=== PATIENT | female | born 1960 | race Two or more races ===

== ENCOUNTER 2017-12-31 10:13 | Emergency (ER) | payer MEDICARE, MEDICAID ==
[~2017-12-31] VITALS: Ht 160 cm; Wt 72.6 kg
[~2017-12-31 10:13] MED LIST: ALBU8.5H8 INH; ASEN10TA9 SL; BUDE10.2 INH; CARB200T8 PO; DULO30CA2 PO; DULO60CA45 PO; PRAV10TA40 PO; PROP10TA10 PO; SERT100T12 PO; TIOT18CA3 IH; TRAZ-182 PO; ZIPR80CA2 PO
--- NOTE | 2017-12-31 10:15 | NUR ---
PT C/O RT EAR PAIN AND DIZZINESS SINCE YESTERDAY. SEEN BY MD FOR EVAL. VSS. SAFETY AND COMFORT MEASURES PROVIDED. WILL MONITOR.
[2017-12-31] MEDS ORDERED: MECLIZINE HCL 25 MG TABLET ONE (10:28)
[2017-12-31] MEDS: MECLIZINE HCL 12.5 MG TABLET PO ONE (10:30)
[2017-12-31 10:33] LABS: BASOPHILS # (AUTO) 0.1 /CMM (0.0-0.2); BASOPHILS % (AUTO) 0.7 % (0.0-2.0); EOSINOPHILS % (AUTO) 3.4 % (0.0-6.0); HEMATOCRIT 40 % (33-45); LYMPHOCYTES # (AUTO) 2.1 /CMM (0.8-4.8); MEAN CORPUSCULAR HGB CONC 35 g/dl (31.0-36.0); MEAN CORPUSCULAR VOLUME 94 fL (82-100); MONOCYTES # (AUTO) 0.7 /CMM (0.1-1.30); MONOCYTES % (AUTO) 7.1 % (2.0-12.0); NEUTROPHILS # (AUTO) 6.7 /CMM (1.8-8.9); NEUTROPHILS % (AUTO) 67.8 % (43.0-81.0); PLATELET COUNT (AUTO) 260 /CMM (150-450); RDW COEFFICIENT OF VARIATION 12.8 (11.5-15.0); RED BLOOD CELL COUNT(AUTO) 4.32 MIL/uL (4.0-5.2); WHITE BLOOD COUNT (AUTO) 9.9 K/uL (4.3-11.0)
--- NOTE | 2017-12-31 10:33 | NUR ---
PT MEDICATED ORDERED.
[2017-12-31 10:40] LABS: CALCIUM, SERUM 9.3 mg/dL (8.5-10.1); CARBON DIOXIDE 27 mmol/L (21-32); CHLORIDE 102 mmol/L (98-107); CREATININE 0.9 mg/dL (0.6-1.3); GLUCOSE 133 mg/dL (74-106); POTASSIUM 4.1 mmol/L (3.5-5.1); SODIUM SERUM 136 mmol/L (136-145); UREA NITROGEN, BLOOD 20 mg/dL (7-18)
[2017-12-31 10:49] LABS: TROPONIN I < 0.017 ng/mL (0.00-0.056)
--- NOTE | 2017-12-31 11:23 | NUR ---
PT TAKEN TO CT.
[2017-12-31 12:00] VITALS: BP 126/77
--- NOTE | 2017-12-31 12:00 | NUR ---
Patient discharged to home in stable condition. Written and verbal after care instructions given. Patient verbalizes understanding of instruction.
== END 2017-12-31 12:01 | disposition home or self-care (01) ==
LOC: ER 10:16
DX: H83.01 Labyrinthitis, right ear (principal); F32.9 Major depressive disorder, single episode, unspecified; F41.9 Anxiety disorder, unspecified; H91.91 Unspecified hearing loss, right ear; Z87.891 Personal history of nicotine dependence
CPT/HCPCS: 36415; 70450-TC; 80048-TC; 84484-TC; 85025-TC; A4606; J8597; Z7610

== ENCOUNTER 2019-09-18 19:14 | Emergency (ER) | payer MEDICARE, OTHER ==
[~2019-09-18] VITALS: Ht 160 cm; Wt 72.6 kg
--- NOTE | 2019-09-18 19:36 | NUR ---
PT CAME TO ER BED 11 C/O PAIN ON RIGHT SIDE OF FACE. PT STATES THAT FOR 2 DAYS THAT SHE RIGHT SIDE NECK LYMPH NODE SWELLING AND HAD THIS PAIN ABOVE HER RIGHT EYEBROW FOR 4 DAYS. REDNESS ON THE RIGHT SIDE OF EYEBROW W/ LESION. AAOX4. NO SOB. VSS. CONNECTED TO MONITOR. AT BEDSIDE.
[2019-09-18] MEDS ORDERED: FLUORESCEIN SODIUM OPHTH 1 EA STRIP ONE (19:39)
[2019-09-18 19:48] VITALS: BP 126/76
[2019-09-18] MEDS ORDERED: TETRACAINE HCL 0.5% OPHTALMIC 15 ML BOTTLE OP ONE (20:00)
[2019-09-18] MEDS ORDERED: FLUORESCEIN SODIUM OPHTH 1 EA STRIP OP ONE (20:00)
[2019-09-22] MEDS ORDERED: VALA10002 PO (10:30)
== END 2019-09-18 19:56 | disposition home or self-care (01) ==
LOC: ER 19:24
DX: B02.9 Zoster without complications (principal); F20.9 Schizophrenia, unspecified; F32.9 Major depressive disorder, single episode, unspecified; F41.9 Anxiety disorder, unspecified; E78.5 Hyperlipidemia, unspecified; I10 Essential (primary) hypertension; Z79.899 Other long term (current) drug therapy; Z87.891 Personal history of nicotine dependence

== ENCOUNTER 2019-09-20 09:21 | Inpatient (IN) | payer MEDICARE, OTHER ==
[~2019-09-20] VITALS: Ht 167.6 cm; Wt 88.5 kg
[2019-09-20] MEDS ORDERED: MORPHINE SULFATE INJ 4 MG/ML DISP.SYRIN ONE (09:47)
[2019-09-20] MEDS ORDERED: ONDANSETRON HCL/PF 4 MG/2 ML VIAL ONE (09:47)
[2019-09-20 09:49] LABS: BASOPHILS # (AUTO) 0.1 /CMM (0.0-0.2); EOSINOPHILS % (AUTO) 5.8 % (0.0-6.0); HEMATOCRIT 42 % (33-45); HEMOGLOBIN 14.4 g/dL (11.5-14.8); LYMPHOCYTES # (AUTO) 1.5 /CMM (0.8-4.8); LYMPHOCYTES % (AUTO) 23.6 % (20.0-44.0); MEAN CORPUSCULAR HGB CONC 34 g/dl (31.0-36.0); MEAN CORPUSCULAR VOLUME 94 fL (82-100); MONOCYTES # (AUTO) 0.6 /CMM (0.1-1.30); MONOCYTES % (AUTO) 9.7 % (2.0-12.0); NEUTROPHILS # (AUTO) 3.8 /CMM (1.8-8.9); NEUTROPHILS % (AUTO) 59.9 % (43.0-81.0); PLATELET COUNT (AUTO) 210 /CMM (150-450); RED BLOOD CELL COUNT(AUTO) 4.51 MIL/uL (4.0-5.2); WHITE BLOOD COUNT (AUTO) 6.4 K/uL (4.3-11.0)
[2019-09-20 09:56] LABS: CALCIUM, SERUM 9.3 mg/dL (8.5-10.1); CREATININE 1.1 mg/dL (0.6-1.3)
[2019-09-20] MEDS ORDERED: ONDANSETRON HCL/PF 4 MG/2 ML VIAL IVP ONE (10:00)
[2019-09-20] MEDS ORDERED: D5W IV ONE (10:00)
[2019-09-20] MEDS ORDERED: MORPHINE SULFATE INJ 2 MG/ML DISP.SYRIN IV ONE (10:00)
[2019-09-20] MEDS ORDERED: ACYCLOVIR IV ONE (10:00)
[2019-09-20] MEDS ORDERED: IV NS 0.9% 1,000 ML BAG IV ONE (10:00)
--- NOTE | 2019-09-20 10:00 | NUR ---
patient came in to the er c/o facial pain, in no distress, on room air, breathing evenly and unlabored. kept comfortable, will continue to monitor accordingly. Will continue to monitor accordingly.
[2019-09-20 10:02] LABS: ALBUMIN 3.8 g/dL (3.4-5.0); BILIRUBIN,DIRECT 0.1 mg/dL (0.0-0.2); BILIRUBIN,TOTAL 0.3 mg/dL (0.2-1.0); TOTAL PROTEIN, SERUM 7.7 g/dL (6.4-8.2)
--- NOTE | 2019-09-20 13:00 | NUR ---
report given, transferred to 2nd floor
--- NOTE | 2019-09-20 13:20 | NUR ---
M/S CATALYST OPERATOR NOTED PT A/OX4, RESPONSIVE TO ALL STIMULI, THAI SPEAKING. RESPIRATION EVEN AND UNLABORED WITH NO ACUTE RESPIRATORY DISTRESS. ABDOMEN SOFT AND NON DISTENDED WITH ACTIVE BOWEL SOUNDS, CONTINENT BOWEL AND BLADDER. SKIN WARM TO TOUCH AND DRY, FACIAL REDNESS DUE TO SHINGLES THE ONLY SKIN IMPAIRMENT. PT WITH PAIN SCALE OF 8/10, REFUSED MORPHINE AND ZOFRAN IN ER. TOLERATING AT THIS TIME STATED. IV SITE AT RIGHT AC #18, PATENT IN FLUSHING, NO S/SX ON INFILTRATION. CALL LIGHT WITHIN REACHED. BED IN LOCKED POSITION, SIDE RAILS X2 UP FOR SAFETY. ON CONTACT ISOLATION DUE TO SHINGLES. WILL CONTINUE TO EVALUATE CARE.
[2019-09-20] MEDS ORDERED: ONDANSETRON HCL/PF 4 MG/2 ML VIAL IVP PRN (15:30)
[2019-09-20] MEDS ORDERED: ACETAMINOPHEN 325 MG TABLET PO PRN (15:30)
[2019-09-20] MEDS ORDERED: ZOLPIDEM TARTRATE 5 MG TABLET PO PRN (15:30)
[2019-09-20] MEDS: IV NS 0.9% 1,000 ML IV PRN (15:43)
[2019-09-20 16:00] VITALS: BP 127/72
[2019-09-20] MEDS: oxyCODONE IR immediate release 5 MG PO PRN (16:02)
[2019-09-20] MEDS: ENOXAPARIN SODIUM 40 MG/0.4 ML DISP.SYRIN SQ SCH (16:03)
[2019-09-20] MEDS: VALACYCLOVIR HCL 500 MG TABLET PO SCH ×2 (16:21→21:01)
[2019-09-20] MEDS: LIDOCAINE 5% OINT 35.44 GM TUBE TP SCH ×2 (16:22→23:20)
--- NOTE | 2019-09-20 18:48 | NUR ---
M/S RN NOTES PT A/O X4, RESPONSIVE TO ALL STIMULI. NO SOB NOTED. FACIAL PAIN SCALE OF 3-4/10, TOLERATED WELL. ON CONTACT ISOLATION. KEPT SKIN CLEAN AND DRY. ABD SOFT AND NON DISTENDED WITH ACTIVE BOWEL SOUNDS, NO BM TODAY. RIGHT AC #18 RUNNING NS AT 75 ML/HR. CALL LIGHT WITHIN REACH, BED REMAINED IN LOW LOCKED POSITION, SIDE RAILS X2 UP FOR BED MOBILITY. ALL CONCERNS ATTENDED. ENDORSED PT CARE TO NEXT SHIFT.
[2019-09-20] MEDS: IPRATROPIUM NEB FS 0.5 MG/2.5 ML AMPUL.NEB NEB SCH (19:17)
[2019-09-20] MEDS ORDERED: ALBUTEROL FS 2.5 MG/0.5 ML VIAL.NEB NEB PRN (19:30)
[2019-09-20] MEDS ORDERED: FLUTICASONE/SALMETEROL DISKUS IH SCH (21:00)
[2019-09-20] MEDS: DULOXETINE HCL 30 MG CAPSULE.DR PO SCH (21:57)
[2019-09-20] MEDS: ATORVASTATIN 10 MG TABLET PO SCH (21:58)
[2019-09-20] MEDS: PROPRANOLOL HCL 10 MG TABLET PO SCH (21:58)
[2019-09-20] MEDS: CARBAMAZEPINE 200 MG TABLET PO SCH (21:58)
[2019-09-20] MEDS: TRAZODONE 50 MG TABLET PO SCH (21:58)
[2019-09-21] MEDS: IPRATROPIUM NEB FS 0.5 MG/2.5 ML AMPUL.NEB NEB SCH ×4 (01:32→19:54)
[2019-09-21] MEDS: VALACYCLOVIR HCL 500 MG TABLET PO SCH ×3 (04:40→22:48)
[2019-09-21] MEDS: IV NS 0.9% 1,000 ML IV PRN ×2 (04:41→20:42)
--- NOTE | 2019-09-21 04:53 | NUR ---
ENDING NOTES: REMAINS IN CONTACT ISOLATION D/T SHINGLES. SHINGLE NOTED ON FOREHEAD NEAR RIGHT EYE BROW. DENIES PAIN WHEN SHE IS QUESTIONED. AMBULATES TO THE BATHROOM STEADY ON HER LEGS. SHE WILL SMILE AND IS COOPERATIVE. SLEPT W/O A PROBLEM.
--- NOTE | 2019-09-21 07:23 | NUR ---
M/S RN OPENING NOTES RECEIVED PATIENT ON BED, A/OX 3, RESPONSIVE TO ALL STIMULI, IMPAIRED HEARING. RESPIRATION EVEN AND NON LABORED WITH NO ACUTE RESPIRATORY DISTRESS. ABDOMEN SOFT AND NON DISTENDED WITH ACTIVE BOWEL SOUNDS. DENIES PAIN AND DISCOMFORT. SKIN WARM TO TOUCH AND DRY. RIGHT EYE WITH SLIGHT SWELLING, PAIN WHEN TOUCHED. IV SITE ACCIDENTALLY PULLED OUT BY LAB. WILL RE-INSERT. CALL LIGHT WITHIN REACH. ALL CONCERNS ATTENDED, BED IN LOW, LOCKED POSITION. WILL CONTINUE TO EVALUATE CARE.
[2019-09-21] MEDS: LIDOCAINE 5% OINT 35.44 GM TUBE TP SCH ×3 (07:51→22:48)
[2019-09-21 08:00] VITALS: BP 141/97
[2019-09-21] MEDS: ZIPRASIDONE 20 MG CAPSULE PO SCH (08:04)
[2019-09-21] MEDS: DULOXETINE HCL 30 MG CAPSULE.DR PO SCH ×2 (08:04→22:51)
[2019-09-21] MEDS: FLUTICASONE/VILANTEROL 1 EACH BLST.W.DEV IH SCH (08:04)
[2019-09-21 08:19] LABS: BASOPHILS # (AUTO) 0.1 /CMM (0.0-0.2); BASOPHILS % (AUTO) 0.7 % (0.0-2.0); HEMATOCRIT 38 % (33-45); LYMPHOCYTES # (AUTO) 2.8 /CMM (0.8-4.8); LYMPHOCYTES % (AUTO) 37.7 % (20.0-44.0); MEAN CORPUSCULAR HGB CONC 34 g/dl (31.0-36.0); MEAN CORPUSCULAR VOLUME 93 fL (82-100); MONOCYTES # (AUTO) 1.1 /CMM (0.1-1.30); NEUTROPHILS # (AUTO) 2.9 /CMM (1.8-8.9); NEUTROPHILS % (AUTO) 39.6 % (43.0-81.0); PLATELET COUNT (AUTO) 186 /CMM (150-450); RED BLOOD CELL COUNT(AUTO) 4.12 MIL/uL (4.0-5.2); WHITE BLOOD COUNT (AUTO) 7.4 K/uL (4.3-11.0)
[2019-09-21 08:48] LABS: ALBUMIN 3.1 g/dL (3.4-5.0); BILIRUBIN,TOTAL 0.3 mg/dL (0.2-1.0); CALCIUM, SERUM 7.9 mg/dL (8.5-10.1); CREATININE 1.1 mg/dL (0.6-1.3); MAGNESIUM 1.7 mg/dL (1.8-2.4); PHOSPHORUS 3.6 mg/dL (2.5-4.9); TOTAL PROTEIN, SERUM 6.7 g/dL (6.4-8.2)
[2019-09-21] MEDS ORDERED: TIOTROPIUM BROMIDE 6 CAP/BOX CAP.W.DEV IH SCH (09:00)
[2019-09-21] MEDS: oxyCODONE IR immediate release 5 MG PO PRN (09:59)
[2019-09-21 10:16] LABS: EOSINOPHILS % (MANUAL) 8 % (0-4); LYMPHOCYTES % (MANUAL) 32 % (16-48); MONOCYTES % (MANUAL) 13 % (0-11.0); NEUTROPHILS % (MANUAL) 47 (42-76); THYROID STIMULATING HORMONE 2.619 uIU/mL (0.358-3.74)
[2019-09-21] MEDS: Magnesium 1GM/D5W 100ML PREMIX 100 ML IV SCH ×2 (11:48→13:00)
--- NOTE | 2019-09-21 11:50 | NUR ---
M/S RN NOTES PT COMFORTABLE AT THIS TIME. HELPED IN PERSONAL HYGIENE. WILL CONTINUE TO EVALUATE CARE
--- NOTE | 2019-09-21 15:25 | NUR ---
M/S RN NOTES PT ROUNDS, PT SLEEPING, EASILY AROUSABLE. NO PAIN NOTED. CONTINUE TO MONITOR
[2019-09-21 16:00] VITALS: BP 105/57
--- NOTE | 2019-09-21 19:07 | NUR ---
M/S RN CLOSING NOTES PT A/OX 3, RESPONSIVE TO ALL STIMULI, ASSESSED NO ACUTE RESPIRATORY DISTRESS. ABDOMEN SOFT AND NON DISTENDED WITH ACTIVE BOWEL SOUNDS. PT DENIES PAIN AND DISCOMFORT. SKIN WARM TO TOUCH AND DRY. RIGHT EYE STILL SWOLLEN, NO IMPAIRMENT WITH VISION. IV AT LEFT AC, PATENT IN FLUSHING, SITE WITH NO S/SX OF INFILTRATION. CALL LIGHT WITHIN REACH. ALL CONCERNS ATTENDED. ENDORSED PT CARE TO NEXT SHIFT.
[2019-09-21 20:38] VITALS: BP 124/69
[2019-09-21] MEDS: TRAZODONE 50 MG TABLET PO SCH (22:50)
[2019-09-21] MEDS: PROPRANOLOL HCL 10 MG TABLET PO SCH (22:51)
[2019-09-21] MEDS: ATORVASTATIN 10 MG TABLET PO SCH (22:51)
[2019-09-21] MEDS: CARBAMAZEPINE 200 MG TABLET PO SCH (22:52)
[2019-09-21] MEDS: ENOXAPARIN SODIUM 40 MG/0.4 ML DISP.SYRIN SQ SCH (22:54)
[2019-09-22] MEDS: IPRATROPIUM NEB FS 0.5 MG/2.5 ML AMPUL.NEB NEB SCH ×3 (01:41→12:39)
[2019-09-22] MEDS: VALACYCLOVIR HCL 500 MG TABLET PO SCH ×2 (06:30→13:08)
[2019-09-22] MEDS: LIDOCAINE 5% OINT 35.44 GM TUBE TP SCH (06:30)
[2019-09-22 06:59] LABS: CALCIUM, SERUM 8.3 mg/dL (8.5-10.1); MAGNESIUM 2.3 mg/dL (1.8-2.4)
--- NOTE | 2019-09-22 07:25 | NUR ---
MS RN OPENING NOTES RECEIVED PATIENT AWAKE IN BED IN NO ACUTE SIGNS OF DISTRESS. A/O X 4. ABLE TO MAKE NEEDS KNOWN, DENIES PAIN OR DISCOMFORTS AT THIS TIME. PT ON CONTACT PRECAUTIONS FOR SHINGLES. ON ROOM AIR, BREATHING EVEN AND UNLABORED. IV ACCESS ON LAC G#22 INTACT AND PATENT, IVF OF NS @ 75ML/HR INFUSING, NO S/S OF INFILTRATIONS NOTED. SAFETY MEASURES IN PLACE: BED IN LOWEST LOCKED POSITION WITH SR UP X2. CALL LIGHT WITHIN REACH. WILL CONTINUE TO MONITOR.
[2019-09-22] MEDS: FLUTICASONE/VILANTEROL 1 EACH BLST.W.DEV IH SCH (08:10)
[2019-09-22] MEDS: DULOXETINE HCL 30 MG CAPSULE.DR PO SCH (08:10)
[2019-09-22] MEDS: ZIPRASIDONE 20 MG CAPSULE PO SCH (08:10)
[2019-09-22 08:36] VITALS: BP 120/56
[2019-09-22] MEDS ORDERED: VALA10002 PO (10:30)
--- NOTE | 2019-09-22 13:19 | NUR ---
RN DISCHARGED NOTES PT DISCHARGED HOME IN STABLE CONDITION. SHE IS A/O X4 AND ABLE TO MAKE NEEDS KNOWN. V/S TAKEN, STABLE AND RECORDED. PHOTO OF SKIN ON FACE/FOREHEAD TAKEN AND FILED ON CHART. ALL BELONGINGS ACCOUNTED FOR AND SIGNED FORM. IV ACCESS ON LAC REMOVED WITH NO ACTIVE BLEEDING NOTED, DRY DRESSING APPLIED AT SITE. NAME ARMBAND REMOVED. HEALTH TEACHINGS/DISCHARGE INSTRUCTIONS GIVEN AND VERBALIZED UNDERSTANDING. PT LEFT UNIT AT 1315 AMBULATORY ACCOMPANIED BY FRIEND NAMED RODRIGO. AWARE OF DISCHARGE
== END 2019-09-22 13:15 | disposition home or self-care (01) | DRG 866 ==
LOC: ER 09:24 → MEDSG2 12:45
PROVIDERS: ADMIT Nurse Practitioner Acute Care; ATTEND Nurse Practitioner Acute Care
DX: B02.8 Zoster with other complications (principal); I10 Essential (primary) hypertension; F32.9 Major depressive disorder, single episode, unspecified; F41.9 Anxiety disorder, unspecified; J44.9 Chronic obstructive pulmonary disease, unspecified; E78.5 Hyperlipidemia, unspecified; F20.9 Schizophrenia, unspecified; Z87.891 Personal history of nicotine dependence; Z79.51 Long term (current) use of inhaled steroids; Z79.899 Other long term (current) drug therapy
CPT/HCPCS: 36415; 80048-TC; 80053-TC; 80061-TC; 80076-TC; 83540-TC; 83735-TC; 84100-TC; 84443-TC; 85025-TC; 87081-TC; G0378; J0133; J1650; J2270; J2405; J3475; J7030; J7060

== ENCOUNTER 2020-10-27 07:31 | Emergency (ER) | payer MEDICARE, OTHER ==
[~2020-10-27] VITALS: Ht 160 cm; Wt 77.1 kg
[~2020-10-27 07:31] MED LIST changes: +SERT-439 PO; -SERT100T12 PO; +VALA10002 PO
--- NOTE | 2020-10-27 07:49 | NUR ---
pt ambulatory to er bed 06 c/o worsening sob x 2 weeks. pt denies chest pain, states got 1st dose of galindo vaccine last sunday. admits to smoking daily. denies fever. awaiting md carrasco.
--- NOTE | 2020-10-27 07:57 | NUR ---
dr almanza at bedside for eval.
[2020-10-27] MEDS ORDERED: ALBUTEROL FS 2.5 MG/0.5 ML VIAL.NEB NEB ONE (08:00)
[2020-10-27] MEDS ORDERED: ALBUTEROL FS 2.5 MG/3 ML VIAL.NEB ONE (08:12)
[2020-10-27 08:21] LABS: BASOPHILS # (AUTO) 0.1 /CMM (0.0-0.2); BASOPHILS % (AUTO) 0.9 % (0.0-2.0); HEMATOCRIT 44 % (33-45); HEMOGLOBIN 14.7 g/dL (11.5-14.8); LYMPHOCYTES # (AUTO) 2.7 /CMM (0.8-4.8); LYMPHOCYTES % (AUTO) 25.3 % (20.0-44.0); MEAN CORPUSCULAR HGB CONC 34 g/dl (31.0-36.0); MEAN CORPUSCULAR VOLUME 93 fL (82-100); MONOCYTES # (AUTO) 0.8 /CMM (0.1-1.30); NEUTROPHILS # (AUTO) 6.9 /CMM (1.8-8.9); NEUTROPHILS % (AUTO) 63.8 % (43.0-81.0); PLATELET COUNT (AUTO) 252 /CMM (150-450); RED BLOOD CELL COUNT(AUTO) 4.67 MIL/uL (4.0-5.2); WHITE BLOOD COUNT (AUTO) 10.8 K/uL (4.3-11.0)
[2020-10-27 08:34] LABS: CALCIUM, SERUM 9.4 mg/dL (8.5-10.1); CARBON DIOXIDE 26 mmol/L (21-32); CHLORIDE 104 mmol/L (98-107); GLUCOSE 164 mg/dL (74-106); SODIUM SERUM 141 mmol/L (136-145); UREA NITROGEN, BLOOD 20 mg/dL (7-18)
[2020-10-27 08:48] LABS: ALANINE AMINOTRANSFERASE 47 U/L (12-78); ALBUMIN 3.6 g/dL (3.4-5.0); ALKALINE PHOSPHATASE 130 U/L (46-116); ASPARTATE AMINOTRANSFERASE 19 U/L (15-37); B-TYPE NATRIURETIC PEPTIDE 72 PG/ML (0-125); BILIRUBIN,DIRECT 0.1 mg/dL (0.0-0.2); BILIRUBIN,TOTAL 0.3 mg/dL (0.2-1.0); TOTAL PROTEIN, SERUM 7.7 g/dL (6.4-8.2)
[2020-10-27] MEDS ORDERED: AZIT500T PO (09:22)
[2020-10-27] MEDS ORDERED: DEXA4TAB PO (09:22)
[2020-10-27 09:57] VITALS: BP 159/73
--- NOTE | 2020-10-27 09:57 | NUR ---
Patient discharged to home in stable condition. Written and verbal after care instructions given. Patient verbalizes understanding of instruction.
== END 2020-10-27 09:58 | disposition home or self-care (01) ==
LOC: ER 07:35
DX: J84.9 Interstitial pulmonary disease, unspecified (principal); I10 Essential (primary) hypertension; E11.9 Type 2 diabetes mellitus without complications; F32.9 Major depressive disorder, single episode, unspecified; F41.9 Anxiety disorder, unspecified; F20.9 Schizophrenia, unspecified; Z87.891 Personal history of nicotine dependence; Z79.899 Other long term (current) drug therapy
CPT/HCPCS: 36415; 71045-TC; 80048-TC; 80076-TC; 83880; 84484-TC; 85025-TC

== ENCOUNTER 2021-08-25 11:23 | Outpatient (CLI) | payer MEDICARE, OTHER ==
[~2021-08-25 11:23] MED LIST changes: +AZIT500T PO; +DEXA4TAB PO; -SERT-439 PO; +SERT100T12 PO
== END 2021-08-25 23:59 | disposition home or self-care (01) ==
LOC: LAB 11:23
PROVIDERS: ATTEND Specialist
DX: Z01.812 Encounter for preprocedural laboratory examination (principal); Z20.822 Contact with and (suspected) exposure to COVID-19
CPT/HCPCS: C9803; U0003

== ENCOUNTER 2021-08-31 05:03 | Day surgery (SDC) | payer MEDICARE, OTHER ==
[~2021-08-31] VITALS: Ht 160 cm; Wt 74.8 kg
--- NOTE | 2021-08-31 05:20 | NUR ---
DAY SURGERY CMO & PRESIDENT NOTE PATIENT CAME IN AT THIS TIME, AMBULATORY, A/OX4. NO S/S OF APPARENT DISTRESS ON ROOM AIR. PAIN IN THE R. KNEE-- GOING IN FOR R. KNEE ARTHROSCOPY WITH PARTIAL MEDIAL MENISCECTOMY WITH DOCTOR NOE. PATIENT DENIES ALLERGIES. DENIES SMOKING WHEN I ASKED, BUT WHEN ASKED BY ANESTHESIOLOGIST PATIENT SAID SHE QUIT 3 MONTHS AGO. DENIES ANY SUBSTANCE ABUSE. WISHES TO BE FULL CODE. HAS BEEN NPO SINCE MIDNIGHT. WENT OVER BELONGINGS WITH PATIENT. BELONGINGS SIGNED. PATIENT UPPER AND LOWER DENTURES TAKEN OFF AT BED SIDE. WT: 165 LBS, HT 5'3". ALL ORDERS IN THE CHART. ID BAND ON PATIENT. PATIENT UP TO DATE WITH HER VACCINATIONS-- COVID AND PNU BUT NO BOOSTER YET. WILL LET PT. SIGN CONSENT FORMS FOR PROCEDURE.
--- NOTE | 2021-08-31 05:55 | NUR ---
MS RN NOTE CONSENTS SIGNED AT THIS TIME. ANESTHESIOLOGIST WAS IN THE ROOM AND SPOKE WITH PATIENT ABOUT PROCEDURE. R. HAND GAUGE 20 NO FLUIDS RUNNING AT THIS TIME. V/S FOLLOWS: 125/71, HR- 63, SATURATION 97%, T- 98.7, RR-18. OR CALLED AND SAID THEY WILL PICK PATIENT UP AT 0630.
[2021-08-31] MEDS ORDERED: ANESTHESIA TRAY IN PYXIS 1 EA TRAY MC ONE (06:16)
[2021-08-31] MEDS ORDERED: methylPREDNISolone ACETATE 80 MG/ML VIAL ONE ×2 (06:16→06:52)
[2021-08-31] MEDS ORDERED: BUPIVACAINE 0.25% 75 MG/30 ML VIAL ONE ×2 (06:16→06:52)
[2021-08-31] MEDS ORDERED: FAMOTIDINE/PF INJ 20 MG/2 ML VIAL IV ONE (06:31)
[2021-08-31] MEDS ORDERED: FENTANYL PF 250MCG/5ML AMPUL ONE (06:31)
[2021-08-31] MEDS ORDERED: MIDAZOLAM HCL 2 MG/2ML VIAL ONE (06:31)
--- NOTE | 2021-08-31 06:50 | NUR ---
MS RN NOTE OR BROUGHT PATIENT DOWN AT THIS TIME. WILL ENDORSE TO MORNING SHIFT RN FOR CONTINUITY OF CARE.
[2021-08-31] MEDS ORDERED: LIDOCAINE HCL/MPF 1% 30 ML VIAL IJ ONE (06:51)
[2021-08-31] MEDS ORDERED: BUPIVACAINE MPF W/EPI 0.25% 30 ML VIAL ONE (06:51)
--- NOTE | 2021-08-31 07:15 | NUR ---
MS RN NOTE PATIENT ENDORSED BY OUTGOING RN. PATIENT CURRENTLY AT THE OR FOR SCHEDULED PROCEDURE. WILL WAIT FOR ENDORSEMENT FROM OR/RR.
[2021-08-31 09:00] VITALS: BP 127/71
[2021-08-31] MEDS ORDERED: ERGO500040 PO (09:05)
[2021-08-31] MEDS ORDERED: POLY17PO4 PO (09:05)
[2021-08-31] MEDS ORDERED: IBUP-1955 PO (09:05)
[2021-08-31] MEDS ORDERED: VALS1TAB4 PO (09:05)
[2021-08-31] MEDS ORDERED: ATOR40TA PO (09:05)
[2021-08-31] MEDS ORDERED: HYDR50TA61 PO (09:05)
[2021-08-31] MEDS ORDERED: OXYB-58 PO (09:05)
[2021-08-31] MEDS ORDERED: CLON0.5T4 PO (09:05)
[2021-08-31] MEDS ORDERED: DICL100G34 TP (09:05)
[2021-08-31] MEDS ORDERED: HYDR-3980 PO (09:05)
[2021-08-31] MEDS ORDERED: VALB40CA2 PO (09:05)
--- NOTE | 2021-08-31 09:50 | NUR ---
MS RN NOTE RECEIVED PATIENT FROM OR ALERT AND ORIENTED WITH NO SIGNS AND SYMPTOMS OF DISTRESS. PATIENT ON ROOM AIR WITH EQUAL AND UNLABORED BREATHING. WITH IV ACCESS ON THE RIGHT HAND G 20 PATENT AND INTACT. WITH ELESTIC BANDAGE ON THE RIGHT KNEE, DRY AND INTACT. PATIENT DOES NOT COMPLAIN OF PAIN OR DISCOMFORT. IN STABLE CONDITION. WITH INSTRUCTION FOR DISCHARGE ONCE PATIENT IS COMFORTABLE. PER PATIENT. SHE WILL GO HOME AROUND 1100H AND THAT HER FRIEND WILL PICK HER UP. CALL LIGHT WITHIN REACH AT ALL TIMES. SAFETY ENSURED WITH BED AT LOWEST LOCKED POSITION, SIDE RAILS RAISED. IN STABLE CONDITION. WILL CONTINUE TO MONITOR PATIENT.
--- NOTE | 2021-08-31 11:10 | NUR ---
MS RN NOTE PATIENT DISCHARGED ORDERED. IN STABLE CONDITION. IV ACCESS REMOVED AND COVERED WITH DRY DRESSING. PATIENT ACCOMPANIED BY NURSE TO LOBBY VIA WHEELCHAIR AND PICKED UP BY FRIEND. IN STABLE CONDITION. ENDORSED ACCORDINGLY.
== END 2021-08-31 16:00 | disposition home or self-care (01) ==
LOC: DS 05:03 → MED 05:04 → UNDOADMIN 05:04 → MED 05:34 → UNDODISIN 11:00 → DS 16:00
PROVIDERS: ATTEND Specialist
DX: S83.231A Complex tear of medial meniscus, current injury, right knee, initial encounter (principal); S83.281A Other tear of lateral meniscus, current injury, right knee, initial encounter; I10 Essential (primary) hypertension; J44.9 Chronic obstructive pulmonary disease, unspecified; M22.40 Chondromalacia patellae, unspecified knee; E11.9 Type 2 diabetes mellitus without complications; E78.5 Hyperlipidemia, unspecified; X58.XXXA Exposure to other specified factors, initial encounter; Y93.89 Activity, other specified; Y92.89 Other specified places as the place of occurrence of the external cause; Y99.8 Other external cause status; Z98.890 Other specified postprocedural states; Z79.899 Other long term (current) drug therapy
CPT/HCPCS: 29880; 82962; 87081; A4217; A6253; J0690; J1040; J1885; J2250; J2405; J2704; J2765; J3010; J3490 ×4; J7030; G0378

== ENCOUNTER 2021-10-04 10:34 | Outpatient (CLI) | payer MEDICARE, OTHER ==
[~2021-10-04 10:34] MED LIST changes: -ALBU8.5H8 INH; -ASEN10TA9 SL; +ATOR40TA PO; -AZIT500T PO; -BUDE10.2 INH; -CARB200T8 PO; +CLON0.5T4 PO; -DEXA4TAB PO; +DICL100G34 TP; -DULO30CA2 PO; +ERGO500040 PO; +HYDR-3980 PO; +HYDR50TA61 PO; +IBUP-1955 PO; +OXYB-58 PO; +POLY17PO4 PO; -PRAV10TA40 PO; -PROP10TA10 PO; -TIOT18CA3 IH; -TRAZ-182 PO; -VALA10002 PO; +VALB40CA2 PO; +VALS1TAB4 PO; -ZIPR80CA2 PO
== END 2021-10-04 23:59 | disposition home or self-care (01) ==
LOC: LAB 10:34
PROVIDERS: ATTEND Internal Medicine Pulmonary Disease
DX: Z01.812 Encounter for preprocedural laboratory examination (principal); Z20.822 Contact with and (suspected) exposure to COVID-19
CPT/HCPCS: C9803; U0003

== ENCOUNTER 2021-10-10 11:53 | Day surgery (SDC) | payer MEDICARE, OTHER ==
[2021-10-10] VITALS (8 sets, daily range): BP systolic 116–133; BP diastolic 65–74
--- NOTE | 2021-10-10 13:02 | NUR ---
MS RN NOTES PT ARRIVED TO UNIT AMBULATORY AT 1210 ACCOMPANIED BY RENAE AND ADMITTING STAFF. PT IS A/O X4. ABLE TO MAKE NEEDS KNOWN, NO C/O VOICED. ON ROOM AIR, BREATHING EVEN AND UNLABORED. IV ACCESS G# 22 INSERTED TO LEFT HAND. EKG ORDERED AND RESULTS FILED ON HER CHART. ALL CONSENTS SIGNED BY PT. PT IN BED RESTING AT THIS TIME WITH AT BEDSIDE. CALL LIGHT PLACED W/IN EASY REACH.
[2021-10-10] MEDS ORDERED: ANESTHESIA TRAY IN PYXIS 1 EA TRAY MC ONE (13:12)
[2021-10-10] MEDS ORDERED: LIDOCAINE 5% OINT 35.44 GM TUBE ONE (13:23)
[2021-10-10] MEDS ORDERED: FENTANYL PF 100MCG/2ML AMPUL ONE (13:32)
[2021-10-10] MEDS ORDERED: ROCURONIUM BROMIDE 50 MG/5 ML ONE (13:32)
--- NOTE | 2021-10-10 14:02 | NUR ---
RN NOTES PATIENT PICKED-UP BY Romelia WALLS VIA HER BED FOR BRONCHOSCOPY.
--- NOTE | 2021-10-10 15:40 | NUR ---
RN NOTES PT RETURNED TO UNIT AT 1435 S/P LEFT UPPER AND MIDDLE LUNG LOBE WASH, RIGHT MIDDLE LOBE AFP, FUNGAL SMEAR CULTURE AND CYTOLOGY BY DR JANG. ORDERS RECEIVED AND WILL CARRY OUT. PT IS AWAKE, A/X 4 WITH AT BEDSIDE. WILL CONTINUE TO MONITOR PT.
[2021-10-10] MEDS ORDERED: HYDROCODONE BIT/HOMATROPINE 5 ML UDC PO PRN (17:00)
--- NOTE | 2021-10-10 17:56 | NUR ---
RN DISCHARGED NOTES PT DISCHARGED HOME INSTABLE CONDITION. A/O X4. ABLE TO MAKE NEEDS KNOWN. PT WITH NO COMPLAINTS VOICED S/P BRONCHOSCOPY. V/S TAKEN, STABLE AND RECORDED. IV ACCESS ON LEFT HAND REMOVED WITH NO BLEEDING NOTED, DRY PRESSURE DRESSING APPLIED AT SITE. INSTRUCTED PT TO CALL DR JANG TO MAKE APPOINTMENT TO SEE HIM IN 1 WEEK. HEALTH TEACHINGS FOR BRONCHOSCOPY AFTER CARE GIVEN TO PT AND , BOTH VERBALIZED UNDERSTANDING. PT LEFT UNIT AMBULATORY AT 1735 ACCOMPANIED BY MILE CARABALLO AND PT'S NAMED RENAE. DR JANG AND CHARGE NURSE AWARE OF DISCHARGE.
== END 2021-10-10 18:00 | disposition home or self-care (01) ==
LOC: DS 11:53 → UNDOADMIN 11:56 → MED 11:56 → UNDODISIN 17:30 → DS 18:00
PROVIDERS: ATTEND Internal Medicine Pulmonary Disease
DX: J18.9 Pneumonia, unspecified organism (principal); I10 Essential (primary) hypertension; J44.9 Chronic obstructive pulmonary disease, unspecified
CPT/HCPCS: 31622; 87081; 88108; 88305; 93005 ×2; 94799; J0330; J0690; J1100; J2405; J2704; J3010; J3490 ×2; J7030; G0378

== ENCOUNTER 2024-01-14 18:45 | Emergency (ER) | payer MEDICARE, OTHER ==
[~2024-01-14] VITALS: Ht 160 cm; Wt 73.0 kg
[2024-01-14] MEDS ORDERED: NAPROXEN 250 MG TABLET ONE (19:42)
[2024-01-14] MEDS: NAPROXEN 250 MG TABLET PO ONE (19:56)
[2024-01-14 20:02] LABS: BASOPHILS # (AUTO) 0.1 K/uL (0.0-0.2); BASOPHILS % (AUTO) 0.4 % (0.0-2.0); EOSINOPHILS # (AUTO) 0.3 K/uL (0.0-0.7); EOSINOPHILS % (AUTO) 1.9 % (0.0-6.0); HEMATOCRIT 38 % (33-45); LYMPHOCYTES % (AUTO) 13.8 % (20.0-44.0); MEAN CORPUSCULAR HEMOGLOBIN 32 PG (26.0-33.0); MEAN CORPUSCULAR HGB CONC 34 g/dl (31.0-36.0); MEAN CORPUSCULAR VOLUME 92 fL (82-100); MONOCYTES # (AUTO) 0.9 K/uL (0.1-1.30); MONOCYTES % (AUTO) 6.4 % (2.0-12.0); NEUTROPHILS # (AUTO) 11.5 K/uL (1.8-8.9); NEUTROPHILS % (AUTO) 77.5 % (43.0-81.0); PLATELET COUNT (AUTO) 255 K/uL (150-450); RED BLOOD CELL COUNT(AUTO) 4.13 MIL/uL (4.0-5.2); RED CELL DISTRIBUTION WIDTH 13.1 % (11.5-15.0); WHITE BLOOD COUNT (AUTO) 14.8 K/uL (4.3-11.0)
[2024-01-14 20:18] LABS: CALCIUM, SERUM 9.6 mg/dL (8.5-10.1); CREATININE 0.7 mg/dL (0.6-1.3); POTASSIUM 3.7 mmol/L (3.5-5.1)
[2024-01-14] MEDS ORDERED: IV NS 0.9% 250 ML IV ONE (20:22)
[2024-01-14] MEDS ORDERED: IOHEXOL-300 100 ML VIAL IV ONE (20:22)
[2024-01-14 21:06] VITALS: BP 131/69; TEMP 98.2; O2SAT 100
[2024-01-14] MEDS ORDERED: AMOX-430 PO (21:16)
[2024-01-14] MEDS ORDERED: CIPR10DR RIGHT EAR (21:16)
[2024-01-14] MEDS ORDERED: NAPR-1009 PO (21:16)
== END 2024-01-14 21:23 | disposition home or self-care (01) ==
LOC: ER 18:45
DX: R59.9 Enlarged lymph nodes, unspecified (principal); H60.91 Unspecified otitis externa, right ear; I10 Essential (primary) hypertension; F32.A Depression, unspecified; F20.9 Schizophrenia, unspecified; F17.200 Nicotine dependence, unspecified, uncomplicated; Z79.899 Other long term (current) drug therapy
CPT/HCPCS: 99285; 70491; 85025; 80048; 36415; J7050; Q9967

== ENCOUNTER 2025-05-25 14:51 | Emergency (ER) | payer MEDICARE, OTHER ==
[~2025-05-25] VITALS: Ht 160 cm; Wt 63.5 kg
[~2025-05-25 14:51] MED LIST changes: +AMOX-430 PO; +CIPR10DR RIGHT EAR; +NAPR-1009 PO
[2025-05-25 16:46] LABS: PLATELET COUNT (AUTO) 247 K/uL (150-450); RED BLOOD CELL COUNT(AUTO) 3.87 MIL/uL (4.0-5.2); RED CELL DISTRIBUTION WIDTH 13.2 % (11.5-15.0); WHITE BLOOD COUNT (AUTO) 8.0 K/uL (4.3-11.0)
[2025-05-25 16:56] LABS: CALCIUM, SERUM 9.3 mg/dL (8.5-10.1); CREATININE 0.8 mg/dL (0.6-1.3); SODIUM SERUM 139 mmol/L (136-145); UREA NITROGEN, BLOOD 25 mg/dL (7-18)
[2025-05-25 17:09] LABS: NT-PRO BNP 57 pg/mL (0-125)
[2025-05-25] MEDS ORDERED: METH-649 PO (19:34)
[2025-05-25] MEDS ORDERED: IBUP-1490 PO (19:34)
[2025-05-25] MEDS ORDERED: LIDO30AD10 TP (19:34)
[2025-05-25 19:40] VITALS: BP 116/71; TEMP 98.1; O2SAT 97
== END 2025-05-25 19:40 | disposition home or self-care (01) ==
LOC: ER 15:09
DX: M25.512 Pain in left shoulder (principal); F17.200 Nicotine dependence, unspecified, uncomplicated; F20.9 Schizophrenia, unspecified; I10 Essential (primary) hypertension; F41.9 Anxiety disorder, unspecified; F32.A Depression, unspecified; Z79.899 Other long term (current) drug therapy
CPT/HCPCS: 36415; 71045-TC; 80048-TC; 83880; 84484-TC; 85025-TC; 93971-TC